=== PATIENT | female | born 1960 | race Caucasian/White ===

== ENCOUNTER → 2016-08-23 | Outpatient (CLI) | payer MEDICARE, OTHER, MEDICAID ==
[~2016-08-23] MED LIST: ARIMIDEX1 MG PO; CALCIUM600 MG PO; CLARITIN10 MG PO; FLONASE16 GM NASBOTH; IMODIUM A-1 MG/7.5 M PO; LAMICTAL200 MG PO; MUCINEX600 MG PO; MULTIVITAMINS1 EAC1 PO; PROBIOTIC1 EAC1 PO; TRIAMCINOLONE A15 GM TOP
== END | disposition short-term general hospital (02) ==
LOC: CLORTH 09:21
DX: M22.2X1 Patellofemoral disorders, right knee (principal)

== ENCOUNTER → 2016-10-18 | Outpatient (CLI) | payer MEDICARE, OTHER, MEDICAID | END | disposition short-term general hospital (02) | LOC: CLORTH 03:02 | DX: M22.2X1 Patellofemoral disorders, right knee (principal) ==